=== PATIENT | male | born 1985 | race Caucasian/White ===

== ENCOUNTER 2024-06-21 16:05 | Emergency (ER) | payer SELFPAY ==
[~2024-06-21] VITALS: Ht 182.9 cm; Wt 97.5 kg
[2024-06-21] MEDS ORDERED: ULTRAM 50MG50 MG PO (17:17)
[2024-06-21] MEDS ORDERED: NAPROXEN250 MG PO (17:17)
[2024-06-21 18:19] VITALS: PULSE 88; RESP 20; TEMP 98.4
[2024-06-21 18:25] VITALS: BP 140/70; PULSE 88; RESP 20; TEMP 98.4; O2SAT 99
== END 2024-06-21 18:28 | disposition home or self-care (01) ==
LOC: ER 17:13
DX: S92.255A Nondisplaced fracture of navicular [scaphoid] of left foot, initial encounter for closed fracture (principal); V09.29XA Pedestrian injured in traffic accident involving other motor vehicles, initial encounter; Y93.01 Activity, walking, marching and hiking; Y92.832 Beach as the place of occurrence of the external cause; J44.9 Chronic obstructive pulmonary disease, unspecified; F17.210 Nicotine dependence, cigarettes, uncomplicated
CPT/HCPCS: 99283